=== PATIENT | female | born 1970 | race Native Hawaiian/Other Pacific Islander ===

== ENCOUNTER 2016-10-24 09:40 | Emergency (ER) | payer OTHER ==
[2016-10-24 09:40] VITALS: BMI 29.2
[2016-10-24 09:46] VITALS: BP 146/86; PULSE 84; RESP 15; TEMP 98.6; O2SAT 98
--- NOTE | 2016-10-24 10:28 | C.PDOC ---
History Of Present Illness Patient is a 46 y/o female that presents to the ED for evaluation of right foot pain, swelling, and redness for the last 2 days. Patient states that she scratched her right foot 2 days ago. Patient states that she noticed redness next day. Patient notes taking Ampicillin 500mg yesterday one dose. Otherwise, denies any fever, chills, extremity weakness/numbness, or any other associated symptoms at this time. Time Seen by Provider: 10/24/16 10:13 Chief Complaint (Nursing): Lower Extremity Problem/Injury History Per: Patient History/Exam Limitations: no limitations Onset/Duration Of Symptoms: Days (2) Current Symptoms Are (Timing): Still Present Recent travel outside of the [place]: No Additional History Per: Patient Past Medical History Reviewed: Historical Data, Nursing Documentation, Vital Signs Vital Signs: Last Vital Signs Temp 98.6 F 10/24/16 09:44 Pulse 84 10/24/16 09:44 Resp 15 10/24/16 09:44 BP 146/86 10/24/16 09:44 Pulse Ox 98 10/24/16 11:04 - Medical History PMH: Asthma, HTN - [facility] Procedures ESOPHAGOGASTRODUODENOSCOPY [EGD] W/CLOSED BIOPSY (05/02/13) Family History: States: No Known Family Hx - Social History Hx Alcohol Use: No Hx Substance Use: No Review Of Systems Except As Marked, All Systems Reviewed And Found Negative. Constitutional: Negative for: Fever, Chills Musculoskeletal: Positive for: Foot Pain (right) Skin: Positive for: Other (right foot swelling, and redness) Neurological: Negative for: Weakness, Incoordination Physical Exam - Physical Exam Appears: Non-toxic, No Acute Distress Skin: Warm, Dry, Other (mild erythema on the dorsal medial aspect of right foot , skin intact) Head: Atraumatic, Normacephalic Eye(s): bilateral: Normal Inspection Neck: Normal ROM Extremity: Normal ROM, No Calf Tenderness, No Deformity, Swelling (mild swelling to dorsal aspect of right foot) Pulses: Left Dorsalis Pedis: Normal, Right Dorsalis Pedis: Normal Neurological/Psych: Oriented x3, Normal Speech, Normal Motor, Normal Sensation Gait: Steady ED Course And Treatment O2 Sat by Pulse Oximetry: 98 (on RA) Pulse Ox Interpretation: Normal Progress Note: Patient was given Keflex 500mg PO in the ER. Patient was instructed to follow up with her PMD or clinic in 2-5 days for further evaluation. Disposition Counseled Patient/Family Regarding: Need For Followup, Rx Given - Disposition Disposition: HOME/ ROUTINE Disposition Time: 10:30 Condition: GOOD Additional Instructions: Follow up with your primary medical doctor or clinic in 2-5 days for further evaluation. Take medications as prescribed. Return to the emergency department at any time if symptoms persist or worsen. 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 - Scribe Statement The provider has reviewed the documentation as recorded by the Normaibiesla Arreola All medical record entries made by the Lottie were at my direction and personally dictated by me. I have reviewed the chart and agree that the record accurately reflects my personal performance of the history, physical exam, medical decision making, and the department course for this patient. I have also personally directed, reviewed, and agree with the discharge instructions and disposition.
== END 2016-10-24 10:32 | disposition home or self-care (01) ==
LOC: C.ER 09:40
DX: L03.115 Cellulitis of right lower limb (principal)

== ENCOUNTER 2016-11-01 04:30 | Emergency (ER) | payer OTHER ==
[2016-11-01 04:31] VITALS: BMI 29.2
--- NOTE | 2016-11-01 04:48 | C.PDOC ---
History Of Present Illness pt presents with palpitations. she woke up and went to the bathroom, and felt heart racing, some sob. asymptomatic at present Time Seen by Provider: 11/01/16 04:47 Chief Complaint (Nursing): Palpitations History Per: Patient History/Exam Limitations: no limitations Onset/Duration Of Symptoms: Hrs Current Symptoms Are (Timing): Still Present Associated Symptoms: Chest Pain, Other (palpitations) Quality Of Symptoms: Rapid Heart Rate Severity: Mild Pain Scale Rating Of: 3 Exacerbating Factor(s): Pos: Other Recent travel outside of the [place]: No Additional History Per: Patient Past Medical History Reviewed: Historical Data, Nursing Documentation, Vital Signs Vital Signs: Last Vital Signs Temp 98 F 11/01/16 04:44 Pulse 86 11/01/16 04:44 Resp 18 11/01/16 04:44 BP 139/68 11/01/16 04:44 Pulse Ox 98 11/01/16 04:44 - Medical History PMH: Asthma, HTN - [facility] Procedures ESOPHAGOGASTRODUODENOSCOPY [EGD] W/CLOSED BIOPSY (05/02/13) Family History: States: No Known Family Hx - Social History Hx Alcohol Use: No Hx Substance Use: No Review Of Systems Constitutional: Negative for: Fever, Chills Eyes: Negative for: Vision Change ENT: Negative for: Throat Pain Cardiovascular: Positive for: Chest Pain, Palpitations Respiratory: Negative for: Shortness of Breath Gastrointestinal: Negative for: Nausea, Vomiting, Abdominal Pain Genitourinary: Negative for: Dysuria Musculoskeletal: Negative for: Back Pain Skin: Negative for: Rash, Lesions, Jaundice, Bruising Neurological: Negative for: Weakness Psych: Negative for: Anxiety Physical Exam - Physical Exam Appears: Non-toxic, No Acute Distress Skin: Warm, Dry Head: Normacephalic Eye(s): bilateral: Normal Inspection Oral Mucosa: Moist Throat: No Erythema Neck: Trachea Midline, Supple Chest: Symmetrical Cardiovascular: Rhythm Regular Respiratory: No Rales, No Rhonchi, No Wheezing Gastrointestinal/Abdominal: Soft, No Tenderness Back: No CVA Tenderness Extremity: Normal ROM Extremity: Bilateral: Atraumatic, Normal Color And Temperature Pulses: Left Dorsalis Pedis: Normal, Right Dorsalis Pedis: Normal Neurological/Psych: Oriented x3, Normal Speech, Normal Cognition Gait: Steady ED Course And Treatment - Laboratory Results Result Diagrams: 11/01/16 05:02 ECG: Interpreted By Me, Viewed By Me ECG Rhythm: Sinus Rhythm (79), Nonspecific Changes Pulse Ox Interpretation: Normal - Radiology CXR: Interpreted by Me, Viewed By Me CXR Interpretation: No: Infiltrates, Fracture, Pnemothorax Disposition Counseled Patient/Family Regarding: Studies Performed, Diagnosis - Disposition Referrals: Mikal Krishnamurthy MD [Primary Care Provider] - Disposition Time: 04:48 Condition: UNKNOWN - Clinical Impression Clinical Impression: Palpitations Physician Patient Turnover Patient Signed Over To: Myriam Walker Handoff Comments: pending labs and disposition
[2016-11-01 04:50] VITALS: TEMP 98
[2016-11-01] MEDS ORDERED: Aspirin 325 mg EC Tablets PO STA (04:54)
[2016-11-01 05:05] LABS: BASO # 0.1 K/uL (0.0-0.2); BASO % 1.1 % (0.0-2.0); EOS # 0.5 K/uL (0.0-0.7); EOS % 6.3 % (0.0-4.0); HEMOGLOBIN 13.4 g/dL (11.0-16.0); LYMPH # 2.4 K/uL (1.0-4.3); LYMPH % 28.7 % (20.0-40.0); MEAN CELL VOLUME 89.5 fL (81.0-99.0); MEAN CORPUSCULAR HEMOGLOBIN 29.6 pg (27.0-31.0); MEAN CORPUSCULAR HGB CONC 33.1 g/dL (33.0-37.0); MEAN PLATELET VOLUME 7.8 fL (7.2-11.7); MONO # 0.5 K/uL (0.0-0.8); MONO % 6.4 % (0.0-10.0); NEUT # 4.8 K/uL (1.8-7.0); NEUT % 57.5 % (50.0-75.0); RBC 4.53 Mil/uL (3.80-5.20); RED CELL DISTRIBUTION WIDTH 13.2 % (11.5-14.5); WHITE BLOOD COUNT 8.4 K/uL (4.8-10.8)
[2016-11-01 05:16] LABS: PROTHROMBIN TIME 11.7 SECONDS (9.7-12.2)
[2016-11-01 06:04] LABS: GRANULAR CAST 14 /lpf (0-1); URINE BILIRUBIN NEGATIVE (NEGATIVE); URINE BLOOD NEGATIVE (NEGATIVE); URINE CLARITY Clear (Clear); URINE COLOR Yellow (YELLOW); URINE GLUCOSE (UA) NORMAL (Normal); URINE LEUKOCYTE ESTERASE NEG Leu/uL (Negative); URINE NITRATE NEGATIVE (NEGATIVE); URINE PROTEIN 1+ mg/dL (NEGATIVE); URINE UROBILINOGEN NORMAL mg/dL (0.2-1.0)
[2016-11-01 06:10] LABS: HCG,QUALITATIVE URINE NEGATIVE (NEGATIVE)
[2016-11-01 06:14] LABS: ALBUMIN 4.6 g/dL (3.5-5.0)
[2016-11-01 06:16] LABS: AST/SGOT 28 U/L (14-36); GFR AFRICAN-AMERICAN > 60; GFR NON-AFRICAN AMERICAN 60
[2016-11-01 06:17] LABS: ALB/GLOB RATIO 1.1 (1.0-2.1); ALT/SGPT 22 U/L (9-52); BLOOD UREA NITROGEN 20 mg/dL (7-17); CALCIUM 9.4 mg/dl (8.6-10.4)
--- NOTE | 2016-11-01 08:46 | RAD ---
PROCEDURE: CHEST RADIOGRAPH, 1 VIEW HISTORY: Palpations COMPARISON: None available. FINDINGS: LUNGS: No focal infiltrate or effusion. Mild venous congestion. Minimal patchy increased markings at the left lung base. Prominent bibasilar breast shadows. PLEURA: As above. CARDIOVASCULAR: Normal. OSSEOUS STRUCTURES: No significant abnormalities. VISUALIZED UPPER ABDOMEN: Normal. OTHER FINDINGS: None. IMPRESSION: No focal infiltrate or effusion. Mild venous congestion. Minimal patchy increased markings at the left lung base. Prominent bibasilar breast shadows.
[2016-11-01 09:37] VITALS: BP 97/54; PULSE 86; RESP 16; O2SAT 99
--- NOTE | 2016-11-03 14:40 | CARD ---
APPROVED REPORT EKG Measurement Heart [id number] [place] 124P57 [id number] <Conclusion> Normal sinus rhythm Normal ECG
== END 2016-11-01 09:54 | disposition home or self-care (01) ==
LOC: C.ER 04:30 → SUPCPDRO 04:30 → C.ER 09:54
DX: R00.2 Palpitations (principal)
CPT/HCPCS: 71010; 80053; 81001; 84443; 84484; 84703; 85025; 85610; 85730; 93005; 96374; 96375; 99285; J2930

== ENCOUNTER 2017-04-10 05:16 | Emergency (ER) | payer OTHER ==
[2017-04-10 05:17] VITALS: BMI 29.2
[2017-04-10 05:31] VITALS: TEMP 99.5; O2SAT 98
--- NOTE | 2017-04-10 05:42 | C.PDOC ---
History Of Present Illness 46 year old female with PMHx of HTN presents to the ED for evaluation of palpitations, SOB, and neck pain. Patient reports that she took her Mucinex PM medication for her cold and after she started feeling palpitations and SOB along with flush feeling of her body. Patient reports taking Lozartan at home, and when she checked her BP at home it was 160/100. Patient denies fever, nausea , vomit, diarrhea, headache, blurry vision, weakness, numbness. Time Seen by Provider: 04/10/17 05:24 Chief Complaint (Nursing): Palpitations History Per: Patient History/Exam Limitations: no limitations Onset/Duration Of Symptoms: Hrs Current Symptoms Are (Timing): Still Present Quality: "Pain" Modifying Factors: None Exacerbating Factors: None Alleviating Factors: None Recent travel outside of the [place]: No Additional History Per: Patient Past Medical History Reviewed: Historical Data, Nursing Documentation, Vital Signs Vital Signs: Last Vital Signs Temp 99.5 F 04/10/17 05:23 Pulse 71 04/10/17 06:23 Resp 18 04/10/17 06:23 BP 133/70 04/10/17 06:23 Pulse Ox 98 04/10/17 06:23 - Medical History PMH: Asthma, Diverticulitis, HTN, Hypercholesterolemia, Hyperlipidemia Surgical History: Tonsillectomy - [facility] Procedures ESOPHAGOGASTRODUODENOSCOPY [EGD] W/CLOSED BIOPSY (05/02/13) Family History: States: Unknown Family Hx - Social History Hx Alcohol Use: No Hx Substance Use: No - Immunization History Hx Tetanus Toxoid Vaccination: No Hx Influenza Vaccination: Yes Hx Pneumococcal Vaccination: No Review Of Systems Constitutional: Negative for: Fever, Chills Cardiovascular: Positive for: Palpitations Respiratory: Positive for: Shortness of Breath. Negative for: Cough Gastrointestinal: Negative for: Nausea, Vomiting, Abdominal Pain Musculoskeletal: Positive for: Neck Pain Skin: Negative for: Rash Neurological: Negative for: Weakness, Numbness, Headache Physical Exam - Physical Exam Appears: Non-toxic, No Acute Distress Skin: Normal Color, Warm, Dry Head: Atraumatic, Normacephalic Nose: No Discharge, No Deformity Oral Mucosa: Moist Neck: Normal ROM, Supple Chest: Symmetrical Cardiovascular: Rhythm Regular (tachycardic), No Murmur Respiratory: Normal Breath Sounds, No Rales, No Rhonchi, No Wheezing Gastrointestinal/Abdominal: Soft, No Tenderness, No Distention, No Rebound Extremity: Normal ROM, No Pedal Edema, No Calf Tenderness, No Deformity, No Swelling Neurological/Psych: Oriented x3, Normal Speech, Normal Cognition Gait: Steady ED Course And Treatment - Laboratory Results Result Diagrams: 04/10/17 05:59 04/10/17 05:59 O2 Sat by Pulse Oximetry: 98 (On RA) Pulse Ox Interpretation: Normal Medical Decision Making Medical Decision Making: Impression : palpitations, neck pain, high BP Plan: * EKG * Blood work * Lopressor 50 mg PO Disposition - Disposition Disposition: HOME/ ROUTINE Disposition Time: 06:30 Condition: IMPROVED Forms: [facility] (Yoruba) - Clinical Impression Clinical Impression: Palpitations - Scribe Statement The provider has reviewed the documentation as recorded by the Scribe Julio C Orellana All medical record entries made by the Scribe were at my direction and personally dictated by me. I have reviewed the chart and agree that the record accurately reflects my personal performance of the history, physical exam, medical decision making, and the department course for this patient. I have also personally directed, reviewed, and agree with the discharge instructions and disposition.
[2017-04-10 06:01] LABS: BASO # 0.1 K/uL (0.0-0.2); BASO % 0.5 % (0.0-2.0); EOS # 0.2 K/uL (0.0-0.7); EOS % 1.9 % (0.0-4.0); LYMPH # 1.4 K/uL (1.0-4.3); LYMPH % 12.3 % (20.0-40.0); MEAN CELL VOLUME 90.7 fL (81.0-99.0); MEAN CORPUSCULAR HEMOGLOBIN 30.3 pg (27.0-31.0); MEAN CORPUSCULAR HGB CONC 33.4 g/dL (33.0-37.0); MEAN PLATELET VOLUME 7.4 fL (7.2-11.7); MONO # 0.7 K/uL (0.0-0.8); MONO % 6.6 % (0.0-10.0); RED CELL DISTRIBUTION WIDTH 12.9 % (11.5-14.5); WHITE BLOOD COUNT 11.2 K/uL (4.8-10.8)
[2017-04-10 06:11] LABS: ALB/GLOB RATIO 1.3 (1.0-2.1); ALKALINE PHOSPHATASE 62 U/L (38-126); ALT/SGPT 47 U/L (9-52); AST/SGOT 32 U/L (14-36); BILIRUBIN,TOTAL 0.6 mg/dL (0.2-1.3); BLOOD UREA NITROGEN 12 mg/dL (7-17); CALCIUM 8.7 mg/dl (8.6-10.4); CARBON DIOXIDE 26 mmol/L (22-30); CHLORIDE 101 mmol/L (98-107); GFR AFRICAN-AMERICAN > 60; GLUCOSE,RANDOM 129 mg/dL (65-105); POTASSIUM 3.9 mmol/L (3.6-5.2); SODIUM 139 mmol/L (132-148)
[2017-04-10 06:24] VITALS: BP 133/70; PULSE 71; RESP 18
--- NOTE | 2017-04-11 22:18 | CARD ---
APPROVED REPORT EKG Measurement Heart [id number] <Conclusion> * Pediatric ECG analysis * Normal sinus rhythm Low voltage QRS
== END 2017-04-10 06:45 | disposition home or self-care (01) ==
LOC: C.ER 05:16
DX: R00.2 Palpitations (principal); I10 Essential (primary) hypertension